=== PATIENT | female | born 1980 | race Caucasian/White ===

== ENCOUNTER → 2017-10-30 | Outpatient (CLI) | payer OTHER ==
[2017-06-14 18:41] VITALS: BP 102/61
[~2017-10-30] MED LIST: DIVALPROEX SOD500 M2; KETOROLAC10 MG PO; NEXIUM20 MG; PROBIOTIC1 EAC1 PO; ZANTAC150 M1; ZYRTEC10 M3 PO
[2017-10-30 16:53] LABS: EOS % 0.8 % (1.0-5.0); HEMATOCRIT 38.9 % (37.0-47.0); LYMPH# 1.6 (1.50-4.00); MEAN CELL VOLUME 92 fl (78-100); MEAN CORPUSCULAR HEMOGLOBIN 31 pg (27-31); MEAN CORPUSCULAR HGB CONC 33 g/dL (33-37); MEAN PLATELET VOLUME 9.6 fl (7.4-10.4); MONO # 0.4 (0.20-0.80); PLATELET COUNT 270 K/mm3 (130-400); RED BLOOD COUNT 4.25 M/mm3 (4.10-5.30); WHITE BLOOD COUNT 5.1 K/mm3 (4.8-10.8)
[2017-10-30 18:00] LABS: ALBUMIN 4.2 g/dL (3.5-5.0); BUN/CREATININE RATIO 20.4 (6.0-26.0); CALCIUM 8.9 mg/dL (8.4-10.2); TOTAL BILIRUBIN 0.3 mg/dL (0.2-1.3); TOTAL PROTEIN 6.9 g/dL (6.3-8.2)
== END ==
LOC: LAB 16:38
PROVIDERS: Family Medicine
DX: Z01.419 Encounter for gynecological examination (general) (routine) without abnormal findings (principal); R53.83 Other fatigue; E55.9 Vitamin D deficiency, unspecified

== ENCOUNTER → 2019-08-28 | Outpatient (CLI) | payer OTHER ==
[2017-06-14 18:41] VITALS: BP 102/61
[2019-08-28 16:42] LABS: EOS # 0.1 (0.04-0.40); EOS % 1.1 % (1.0-5.0); HEMATOCRIT 40.5 % (37.0-47.0); HEMOGLOBIN 13.2 g/dL (12.5-16.0); LYMPH# 2.1 (1.50-4.00); MEAN CELL VOLUME 93 fl (78-100); MEAN CORPUSCULAR HEMOGLOBIN 30 pg (27-31); MEAN CORPUSCULAR HGB CONC 33 g/dL (33-37); MONO # 0.5 (0.20-0.80); NEU # 3.9 (1.40-6.50); PLATELET COUNT 269 K/mm3 (130-400); RED BLOOD COUNT 4.35 M/mm3 (4.10-5.30); RED CELL DISTRIBUTION WIDTH 12.6 % (11.5-14.5); WHITE BLOOD COUNT 6.6 K/mm3 (4.8-10.8)
[2019-08-28 16:48] LABS: POTASSIUM 3.8 mmol/L (3.5-5.1)
[2019-08-28 16:49] LABS: ALBUMIN 4.3 g/dL (3.5-5.0)
[2019-08-28 16:51] LABS: TOTAL PROTEIN 7.1 g/dL (6.4-8.3)
[2019-08-28 16:53] LABS: TOTAL BILIRUBIN 0.3 mg/dL (0.2-1.2)
== END ==
LOC: LAB 16:06
PROVIDERS: Family Medicine
DX: Z00.00 Encounter for general adult medical examination without abnormal findings (principal); E78.5 Hyperlipidemia, unspecified

== ENCOUNTER → 2020-04-20 | Outpatient (CLI) | payer OTHER ==
[2017-06-14 18:41] VITALS: BP 102/61
[2020-04-20 09:23] LABS: EOS % 0.8 % (1.0-5.0); HEMATOCRIT 41.6 % (37.0-47.0); HEMOGLOBIN 13.5 g/dL (12.5-16.0); LYMPH# 1.7 (1.50-4.00); MEAN CELL VOLUME 93 fl (78-100); MEAN CORPUSCULAR HEMOGLOBIN 30 pg (27-31); MEAN CORPUSCULAR HGB CONC 33 g/dL (33-37); MONO # 0.4 (0.20-0.80); NEU # 2.8 (1.40-6.50); PLATELET COUNT 257 K/mm3 (130-400); RED BLOOD COUNT 4.48 M/mm3 (4.10-5.30); RED CELL DISTRIBUTION WIDTH 13.2 % (11.5-14.5); WHITE BLOOD COUNT 4.9 K/mm3 (4.8-10.8)
[2020-04-20 09:33] LABS: ALBUMIN 4.2 g/dL (3.5-5.0)
[2020-04-20 09:34] LABS: POTASSIUM 3.9 mmol/L (3.5-5.1)
[2020-04-20 09:35] LABS: CALCIUM 8.7 mg/dL (8.3-10.5)
[2020-04-20 09:36] LABS: TOTAL PROTEIN 7.2 g/dL (6.4-8.3)
[2020-04-20 09:38] LABS: TOTAL BILIRUBIN 0.6 mg/dL (0.2-1.2)
== END ==
LOC: LAB 08:59
PROVIDERS: Family Medicine
DX: E55.9 Vitamin D deficiency, unspecified (principal); R00.2 Palpitations

== ENCOUNTER → 2020-04-21 | Outpatient (CLI) | payer OTHER ==
[2017-06-14 18:41] VITALS: BP 102/61
--- NOTE | 2020-04-22 19:30 | NUR ---
PATIENT RETURNS TO THE HOSPITAL AT THIS TIME TO RETURN [facility] MONITOR, PAPERWORK SIGNED, MONITOR REMOVED FROM PATIENT AND BATTERY REMOVED, PLACED BACK IN CONTAINER WITH PAPERWORK AND PLACED IN INTERAGENCY ENVELOPE ON ITS WAY TO CARDIOLOGY AT [facility], PATIENT AMBULATES OUT WITHOUT DIFFICULTY, GAIT STEADY, RESP EVEN/UNLABORED
== END ==
LOC: AMSURD 16:43
DX: R00.2 Palpitations (principal)

== ENCOUNTER → 2020-11-23 | Outpatient (CLI) | payer OTHER | LOC: RAD 09:00 | DX: U07.1 COVID-19 (principal) ==